=== PATIENT | female | born 1960 | race Caucasian/White ===

== ENCOUNTER 2019-08-18 12:28 | Emergency (ER) | payer MEDICARE, OTHER ==
[2019-08-18 12:58] VITALS: BP 151/79
--- NOTE | 2019-08-18 14:06 | UC ---
Elbow Pain - HPI Summary HPI Summary: Yareli MERCADO SLIPPED ON THE ICE EARLIER TODAY AND FELL LANDING ON HER LEFT ELBOW. NO HEAD INJURY OR LOC. HAS SUPERFICIAL ABRASIONS. UP TO DATE TETANUS. IS REQUESTING AN X-RAY. RIGHT HAND DOMINANT. - History of Current Complaint Chief Complaint: UCUpperExtremity Stated Complaint: ELBOW INJURY Time Seen by Provider: 08/18/19 13:32 Hx Obtained From: Patient Onset/Duration: Hours, Still Present Severity Initially: Moderate Severity Currently: Moderate Pain Intensity: 3 Pain Scale Used: 0-10 Numeric Location Of Pain: Is Discrete @ - LEFT ELBOW Character: Sharp Aggravating Factor(s): Other - TOUCH Alleviating Factor(s): Rest Associated Signs And Symptoms: Negative: Swelling, Redness, Weakness - Allergies/Home Medications Allergies/Adverse Reactions: Allergies Allergy/AdvReac Type Severity Reaction Status Date / Time No Known Allergies Allergy Verified 08/18/19 12:49 Home Medications: Home Medications Atorvastatin Calcium [Lipitor] 10 mg PO DAILY 03/30/19 [History Confirmed ] Metformin HCl [Metformin HCl ER] 1,500 mg PO DAILY 03/30/19 [History Confirmed 08/18/19] glipiZIDE [Glipizide ER] 5 mg PO DAILY 03/30/19 [History Confirmed 08/18/19] Acetaminophen/Diphenhydramine [Acetaminophen Pm Caplet] 2 each PO BEDTIME PRN [History Confirmed 08/18/19] Omeprazole 10 mg PO DAILY 07/25/19 [History Confirmed 07/25/19] PMH/Surg Hx/FS Hx/Imm Hx Endocrine History: Diabetes - Surgical History Surgical History: Yes Surgery Procedure, Year, and Place: Hysterectomy. Tubal Ligation/adhesions - Family History Known Family History: Positive: Non-Contributory - Social History Alcohol Use: Occasionally Substance Use Type: Marijuana Substance Use Comment - Amount & Last Used: daily Smoking Status (MU): Former Smoker Length of Time of Smoking/Using Tobacco: 20 years When Did the Patient Quit Smoking/Using Tobacco: 2003 Review of Systems All Other Systems Reviewed And Are Negative: Yes Constitutional: Positive: Negative Skin: Positive: Other - ABRASIONS LEFT ELBOW Respiratory: Positive: Negative Cardiovascular: Positive: Negative Gastrointestinal: Positive: Negative Musculoskeletal: Positive: Arthralgia Physical Exam Triage Information Reviewed: Yes Appearance: Well-Appearing, No Pain Distress, Well-Nourished Vital Signs: Initial Vital Signs Temp 98.6 F 08/18/19 12:52 Pulse 81 08/18/19 12:52 Resp 18 08/18/19 12:52 BP 151/79 08/18/19 12:52 Pulse Ox 100 08/18/19 12:52 Vital Signs Reviewed: Yes Eyes: Positive: Conjunctiva Clear ENT: Positive: Hearing grossly normal Neck: Positive: Supple Respiratory: Positive: No respiratory distress, No accessory muscle use Cardiovascular: Positive: Pulses Normal Abdomen Description: Positive: Soft Musculoskeletal: Positive: ROM Intact, No Edema, Other: - TTP LEFT OLECRANON AND MEDIAL EPICONDYLE Neurological: Positive: Alert Psychological: Positive: Age Appropriate Behavior Skin: Positive: Other - SPFL ABRASIONS LEFT ELBOW Diagnostics - Radiology LEFT ELBOW XRAYS Radiology Interpretation Completed By: Radiologist Summary of Radiographic Findings: No fracture of the left elbow is noted. Elbow Pain Course/Dx - Course Course Of Treatment: X-RAYS TODAY NEGATIVE FOR FRACTURE DISLOCATION. SLING APPLIED FOR COMFORT. ADVISED REST, ICE, ELEVATION. FOLLOW-UP PCP OR ORTHO IF NOT IMPROVING EXPECTED. - Differential Dx/Diagnosis Provider Diagnosis: Left elbow contusion Discharge ED - Sign-Out/Discharge Documenting (check all that apply): Patient Departure All imaging exams completed and their final reports reviewed: Yes - Discharge Plan Condition: Stable Disposition: HOME Patient Education Materials: Contusion in Adults (ED) Referrals: Maira Avila MD [Medical Doctor] - If Needed Tay Tobin MD [Primary Care Provider] - If Needed Additional Instructions: XRAY TODAY NEGATIVE FOR FRACTURE OR DISLOCATION. YOUR SYMPTOMS SHOULD IMPROVE SIGNIFICANTLY OVER THE NEXT 1-2 WEEKS. IF YOU DO NOT IMPROVE EXPECTED FOLLOW- UP WITH YOUR PCP OR ORTHO. YOU MAY BENEFIT FROM REPEAT IMAGING AT THAT TIME. OTC IBUPROFEN OR ALEVE NEEDED FOR DISCOMFORT. REST, ICE, ELEVATE. SLING NEEDED FOR SYMPTOM RELIEF. - Billing Disposition and Condition Condition: STABLE Disposition: Home
== END 2019-08-18 14:22 | disposition home or self-care (01) ==
LOC: UCEAST 12:28
DX: S50.02XA Contusion of left elbow, initial encounter (principal); E11.9 Type 2 diabetes mellitus without complications; Z87.891 Personal history of nicotine dependence; Z79.84 Long term (current) use of oral hypoglycemic drugs; W00.0XXA Fall on same level due to ice and snow, initial encounter; Y92.9 Unspecified place or not applicable
CPT/HCPCS: 99212; G0463